=== PATIENT | female | born 1995 | race Caucasian/White ===

== ENCOUNTER → 2021-06-24 | Outpatient (CLI) | payer BC ==
--- NOTE | 2021-06-24 16:25 | Diagnostic Imaging Report ---
INDICATION: Anatomical survey and supervision during normal . TECHNIQUE: Multiple real-time grayscale images were obtained over the gravid uterus. COMPARISON: None FINDINGS: A single viable intrauterine currently in cephalic presentation. Normal amount of amniotic fluid. Placenta is posterior and somewhat low-lying. Cervical length at 4.2 cm. Maternal adnexa not visualized. The visualized anatomical structures including the kidneys, bladder, stomach, intracranial structures, four-chamber heart, three-vessel cord and insertion site as well as spine are unremarkable. Biometrical measurements are as follows: Biparietal 4.68 cm, age 20 weeks 2 days. Head circumference 17.14 cm, age 19 weeks 6 days. Abdominal circumference 14.11 cm, age 19 weeks 4 days. Femur length 3.16 cm, age 19 weeks 6 days. Sonographic estimate age: 20 weeks 0 days. Sonographic estimated date of delivery: 11/11/2021. Estimated Weight: 306 gm (+/- 45 gm). LMP percentile: 43%. heart rate: 144 beats per minute. number: 1 of 1. IMPRESSION: Single intrauterine currently in a cephalic presentation. Sonographic estimated age 20 weeks 0 days for estimated date of delivery 11/11/2021. No abnormality is suggested at this time. Dictated by: Dictated on workstation # [id number]
== END ==
LOC: RAD 13:45
PROVIDERS: ATTEND Obstetrics & Gynecology
DX: Z34.02 Encounter for supervision of normal first pregnancy, second trimester (principal); Z3A.20 20 weeks gestation of pregnancy
CPT/HCPCS: 76805

== ENCOUNTER 2021-11-09 19:00 | Inpatient (IN) | payer BC ==
[~2021-11-09] VITALS: Ht 167.7 cm; Wt 85.0 kg
[2021-11-09 19:17] VITALS: BP 117/76
[2021-11-09] MEDS ORDERED: TERBUTALINE INJ 1 MG/ML (BRETHINE) AMP SC PRN (20:00)
[2021-11-09 20:11] LABS: BASOPHILS # (AUTO) 0.1 10^3/uL (0.0-0.1); BASOPHILS % (AUTO) 0 % (0-10); EOSINOPHILS # (AUTO) 0.1 10^3/uL (0.0-0.3); EOSINOPHILS % (AUTO) 1 % (0-10); HEMATOCRIT 38 % (35-52); HEMOGLOBIN 12.9 g/dL (11.5-16.0); LYMPHOCYTES # (AUTO) 1.7 10^3/uL (1.0-4.0); LYMPHOCYTES % (AUTO) 13 % (12-44); MEAN CORPUSCULAR HEMOGLOBIN 32 pg (25-34); MEAN CORPUSCULAR HGB CONC 34 g/dL (32-36); MEAN CORPUSCULAR VOLUME 93 fL (80-99); MEAN PLATELET VOLUME 11.6 fL (9.0-12.2); MONOCYTES % (AUTO) 8 % (0-12); NEUTROPHILS # (AUTO) 9.7 10^3/uL (1.8-7.8); NEUTROPHILS % (AUTO) 76 % (42-75); PLATELET COUNT 210 10^3/uL (130-400); WHITE BLOOD COUNT 12.8 10^3/uL (4.3-11.0)
[2021-11-09] MEDS ORDERED: NS IV 1000 ML 1,000 ML ONE (20:12)
[2021-11-09] MEDS ORDERED: NS IV 1000 ML 1,000 ML IV SCH (20:15)
[2021-11-09] MEDS ORDERED: D5 LR IV SOLUTION 1,000 ML IV ONE (21:09)
[2021-11-09] MEDS: D5 LR IV SOLUTION 1,000 ML IV SCH (21:18)
[2021-11-09 22:02] VITALS: BP 125/71
[2021-11-09] MEDS: CATHETER FLUSH 10 ML SYR IV SCH (22:46)
[2021-11-09] MEDS ORDERED: ceFAZolin 2 GM/50 ML (ANCEF) Premixed IV ONE (23:00)
[2021-11-09 23:10] VITALS: BP 117/63
[2021-11-10] VITALS (78 sets, daily range): BP systolic 72–169; BP diastolic 33–81
[2021-11-10] MEDS ORDERED: IBUPROFEN 600 MG (MOTRIN) TAB PO SCH
[2021-11-10] MEDS: ceFAZolin INJECTION 1,000 MG VIAL IV SCH ×4 (00:03→17:54)
[2021-11-10] MEDS: D5 LR IV SOLUTION 1,000 ML IV SCH ×3 (04:05→20:11)
[2021-11-10] MEDS: CATHETER FLUSH 10 ML SYR IV SCH ×2 (06:24→22:00)
[2021-11-10] MEDS: OXYTOCIN PRE-MIX DRIP 500 ML IV SCH ×3 (06:35→23:54)
[2021-11-10] MEDS ORDERED: fentaNYL 2 mcg/ml BUPIVA 0.125 100 ML ONE (07:11)
[2021-11-10] MEDS: fentaNYL 2 mcg/ml BUPIVA 0.125 100 ML IV SCH ×2 (07:50→16:17)
[2021-11-10] MEDS ORDERED: fentaNYL INJ 100 MCG/2 ML AMP ONE (07:51)
--- NOTE | 2021-11-10 08:07 | History & Physical-OB ---
OB - Chief Complaint & HPI Date/Time Date of Admission: Date of Admission: Nov 09, 2021 at 19:05 Date seen by a Provider: Nov 10, 2021 Time Seen by a Provider: 07:45 Chief Complaint/History OB-Reason for Admission/Chief: Induction of Labor Hx : 1 Hx Para: 0 Expected Date of Delivery: Nov 13, 2021 Gestational Age in Weeks: 39 Gestational Age in Days: 3 Indication for induction: maternal discomfort Admission Nurse Assessment Rev: Yes History of Labs O pos Antibody neg RI RPR NR HBsAg NR HIV NR GC neg GBS pos Allergies and Home Medications Allergies Coded Allergies: Penicillins (Verified Allergy, Intermediate, Itching, 11/09/21) Patient Home Medication List Home Medication List Reviewed: Yes OB - History Hx of Present Care: Yes Ultrasounds: Normal mid trimester US Obstetrical Complications: None Medical Complications: None Patient Past Medical History n/a Immunizations Influenza Vaccine Up-to-Date: No; Not Current Hepatitis A: Yes Hepatitis B: Yes OB - Admission Exam Physical Exam Vitals: Vital Signs 11/09/21 11/10/21 23:10 06:39 Temp 36.4 Pulse 88 Resp 20 B/P (MAP) 127/76 (93) Pulse Ox 97 O2 Delivery Room Air HEENT: NCAT Heart: Rhythm Normal Lungs: Clear Abdomen: Gravid Extremities: Normal Reflexes: Normal Cervical Dilatation: 1cm Effacement: 75% Station: -2 Membranes: Intact Heart Rate: 130's Accelerations: Accelerations Present Decelerations: No Decelerations Short Term Variability: Present Construction Trench Digger Variability: Average (6-25) Contractions on Admission: >10 Minutes Apart Intensity: Mild Ash Scoring Tool (Modified) Dilation (cm): 1-2cm (1) Effacement (%): 51-79% (2) Descent/Station: -1,0 (2) Cervix Consistency: Soft (2) Cervix Position: Anterior (2) Subtract 1 point for: Nulliparity (-1) Ash Score: 8 Labs Laboratory Tests Test 11/09/21 19:30 Range/Units White Blood Count 12.8 H 4.3-11.0 10^3/uL Red Blood Count 4.07 3.80-5.11 10^6/uL Hemoglobin 12.9 11.5-16.0 g/dL Hematocrit 38 35-52 % Mean Corpuscular Volume 93 80-99 fL Mean Corpuscular Hemoglobin 32 25-34 pg Mean Corpuscular Hemoglobin Concent 34 32-36 g/dL Red Cell Distribution Width 13.1 10.0-14.5 % Platelet Count 210 130-400 10^3/uL Mean Platelet Volume 11.6 9.0-12.2 fL Immature Granulocyte % (Auto) 2 % Neutrophils (%) (Auto) 76 H 42-75 % Lymphocytes (%) (Auto) 13 12-44 % Monocytes (%) (Auto) 8 0-12 % Eosinophils (%) (Auto) 1 0-10 % Basophils (%) (Auto) 0 0-10 % Neutrophils # (Auto) 9.7 H 1.8-7.8 10^3/uL Lymphocytes # (Auto) 1.7 1.0-4.0 10^3/uL Monocytes # (Auto) 1.0 0.0-1.0 10^3/uL Eosinophils # (Auto) 0.1 0.0-0.3 10^3/uL Basophils # (Auto) 0.1 0.0-0.1 10^3/uL Immature Granulocyte # (Auto) 0.3 H 0.0-0.1 10^3/uL OB - Assessment/Plan/Diagnosis Assessment Assessment: induction of labor Admission Dx 26 yo @ 39 weeks Elective IOL GBS pos Admission Status: Inpatient Order (span 2 midnights) Reason for Inpatient Admission: IOL at 39 weeks Plan Plan: Induction Induction Method: per Misoprostol Protocol MARKO SIBLEY DO Nov 10, 2021 08:07
[2021-11-10] MEDS ORDERED: LACTATED RINGERS 1,000 ML IV ONE (09:30)
[2021-11-10] MEDS ORDERED: ONDANSETRON 4 MG/2 ML (SDV) Z0FRAN IV PRN (09:30)
[2021-11-10] MEDS ORDERED: NALOXONE 0.4 MG/ML 1 ML (NARCAN) VIAL IV PRN ×2 (09:30→23:45)
[2021-11-10] MEDS ORDERED: LIDOCAINE/EPI 2% 1:200,00 (XYLOCAINE) 10 ML VIAL ONE (21:38)
--- NOTE | 2021-11-10 23:38 | OB Labor & Delivery Record ---
L&D History Date of Service Date of Service: Nov 10, 2021 History Expected Date of Delivery: Nov 13, 2021 Gestational Age in Weeks: 39 Hx : 1 Hx Para: 0 Complications Events: Routine care Operative Indications (Cesarea: N/A-Vaginal Delivery Intrapartal Events: None L&D Stage1 Stage One Onset of Labor - Date: Nov 10, 2021 Monitors and Tracing Monitor Mode: External Heart Rate: 145 Monitor Accelerations: Uniform Monitor Decelerations: Variable Station: 0 Usp Variability: Average (6-10) Short Term Variability: Present Presentation: Vertex Vital Signs VS - Last 72 Hours, by Label 11/09/21 11/09/21 11/09/21 11/09/21 19:17 21:53 21:58 22:02 Temp 36.0 Pulse 110 90 84 Resp 16 B/P (MAP) 125/71 (89) Pulse Ox 96 97 98 O2 Delivery Room Air Room Air Room Air 11/09/21 11/10/21 11/10/21 11/10/21 23:10 00:14 03:22 03:38 Temp 36.1 36.3 36.4 Pulse 88 B/P (MAP) 117/63 (81) 11/10/21 11/10/21 11/10/21 11/10/21 06:39 07:10 07:27 07:37 Temp 36.4 Pulse 87 90 67 Resp 20 18 18 18 B/P (MAP) 127/76 (93) 127/77 (94) 144/72 (96) 72/33 (46) Pulse Ox 97 99 97 O2 Delivery Room Air Room Air Room Air Room Air 11/10/21 11/10/21 11/10/21 11/10/21 07:39 07:41 07:44 07:47 Pulse 55 62 67 75 Resp 18 18 18 18 B/P (MAP) 106/57 (73) 116/61 (79) 118/66 (83) 123/68 (86) Pulse Ox 97 97 98 98 O2 Delivery Room Air Room Air Room Air Room Air 11/10/21 11/10/21 11/10/21 11/10/21 07:50 07:53 07:56 07:59 Pulse 93 92 96 75 Resp 18 18 18 18 B/P (MAP) 123/60 (81) 125/69 (87) 116/66 (83) 89/51 (64) Pulse Ox 98 97 97 98 O2 Delivery Room Air Room Air Room Air Room Air 11/10/21 11/10/21 11/10/21 11/10/21 08:02 08:05 08:08 08:11 Pulse 76 77 83 72 Resp 18 18 18 18 B/P (MAP) 123/66 (85) 96/52 (67) 109/59 (76) 118/57 (77) Pulse Ox 98 99 99 99 O2 Delivery Room Air Room Air Room Air Room Air 11/10/21 11/10/21 11/10/21 11/10/21 08:14 08:17 08:20 08:23 Pulse 103 95 97 87 Resp 18 18 18 18 B/P (MAP) 109/59 (76) 118/64 (82) 99/54 (69) 126/64 (84) Pulse Ox 97 97 96 96 O2 Delivery Room Air Room Air Room Air Room Air 11/10/21 11/10/21 11/10/21 11/10/21 08:26 08:29 08:32 08:35 Pulse 110 79 107 96 Resp 18 18 18 18 B/P (MAP) 107/61 (76) 117/67 (84) 118/60 (79) 84/47 (59) Pulse Ox 96 95 95 98 O2 Delivery Room Air Room Air Room Air Room Air 11/10/21 11/10/21 11/10/21 11/10/21 08:40 09:00 09:15 09:30 Temp 36.0 Pulse 84 90 67 112 Resp 18 18 18 18 B/P (MAP) 108/62 (77) 121/76 (91) 118/68 (85) 107/67 (80) Pulse Ox 97 97 O2 Delivery Room Air Room Air Room Air Room Air 11/10/21 11/10/21 11/10/21 11/10/21 09:45 10:00 10:30 10:45 Pulse 89 130 86 90 Resp 18 18 18 18 B/P (MAP) 115/68 (84) 91/55 (67) 128/78 (95) 109/67 (81) O2 Delivery Room Air Room Air Room Air Room Air 11/10/21 11/10/21 11/10/21 11/10/21 11:00 11:15 11:30 11:45 Temp 35.9 Pulse 81 84 75 76 Resp 18 18 18 18 B/P (MAP) 120/66 (84) 117/65 (82) 120/64 (82) 114/59 (77) O2 Delivery Room Air Room Air Room Air Room Air 11/10/21 11/10/21 11/10/21 11/10/21 12:00 12:15 12:30 12:45 Temp 35.9 Pulse 74 90 75 89 Resp 18 18 18 18 B/P (MAP) 105/55 (72) 122/73 (89) 124/67 (86) 104/59 (74) O2 Delivery Room Air Room Air Room Air Room Air 11/10/21 11/10/21 11/10/21 11/10/21 13:00 13:15 13:30 13:45 Temp 36.0 Pulse 81 86 95 89 Resp 18 18 18 18 B/P (MAP) 105/56 (72) 119/67 (84) 124/64 (84) 107/63 (78) O2 Delivery Room Air Room Air Room Air Room Air 11/10/21 11/10/21 11/10/21 11/10/21 14:00 14:15 14:30 14:45 Pulse 80 82 71 69 Resp 18 B/P (MAP) 113/66 (82) 117/71 (86) 120/59 (79) 120/59 (79) O2 Delivery Room Air 11/10/21 11/10/21 11/10/21 11/10/21 15:00 15:15 15:30 16:00 Temp 35.9 Pulse 75 71 80 85 B/P (MAP) 116/55 (75) 122/62 (82) 125/67 (86) 115/63 (80) 11/10/21 11/10/21 11/10/21 11/10/21 16:15 16:30 16:45 17:00 Temp 36.2 Pulse 106 84 76 93 B/P (MAP) 115/57 (76) 116/67 (83) 120/65 (83) 131/81 (98) 11/10/21 11/10/21 11/10/21 11/10/21 17:15 17:30 17:45 18:00 Pulse 81 85 93 77 B/P (MAP) 130/81 (97) 125/65 (85) 120/67 (84) 122/66 (84) 11/10/21 11/10/21 11/10/21 18:15 18:30 18:45 Pulse 98 81 81 B/P (MAP) 111/67 (82) 126/68 (87) 123/69 (87) Rupture of Membranes Spontaneous Ruture of Membrane: Yes Amniotic Membrane Rupture Time: 0120 Amniotic Membrane Fluid Desc.: Clear Vaginal Bleeding Description: Normal Show Induction/Anesthesia Epidural Cath Placement - Time: 732 Progress/Notes Patient admitted for IOL at 39 weeks last night. Given PO dosing of misoprostol overnight. She had SROM early this morning. Pitocin augmentation started this AM, and epidural received. She progressed throughout the day to complete and 0 station when she began to feel an urge to push L&D Stage2 Stage Two Stage II Date: Nov 10, 2021 Monitors and Tracing Monitor Mode: External Heart Rate: 145 Monitor Accelerations: Uniform Monitor Decelerations: Variable Chargemaster Analyst Variability: Average (6-10) Short Term Variability: Present Position: Right Occiput Anterior Presentation: Vertex Cord Descript/Complications Cord Vessel Description: 3 Vessels Delivery Type Delivery Method: Spontaneous Vaginal Anterior Shoulder: Left Episiotomy/Perineal Laceration Laceraction(s)/Extensions: Yes Episiotomy Description: Perineal Extension/lac, 2nd degree Degree (describe repair) Perineal laceration repaired using 3-0 and 2-0 vicryl suture in usual fashion Condition of Infant Delivery 1 minute Comment: 9 5 minute Comment: 9 Notes Live female infant weight 7lbs 8 oz Condition of Infant Condition of Infant: Living Exam: No Observed Abnormalities Resuscitation Resuscitation: N/A - Spontaneous Resp L&D Stage3 Stage Three Stage III Date: Nov 10, 2021 Pictocin Pitocin Administration mu/min: 20 Pitocin ml/hr: 20 Pitocin Administration Comment: 30 mu wide open at delivery of placenta Placenta Delivery Placenta Delivery: Spontaneous Delivery Summary Summary Estimated blood loss (mL): 350 Attending at delivery: Marko Sibley DO Condition of Delivery Examined: Cervix Examined, Uterus Explored Post Hemorrhage: No Condition of Mother stable Condition of Infant (s) stable MARKO SIBLEY DO Nov 10, 2021 23:38
--- NOTE | 2021-11-10 23:39 | Discharge Inst-Women's Service ---
Discharge Inst-Women's Serv Depart Medication/Instructions New, Converted or Re-Newed RX: Transmitted to Pharmacy Final Diagnosis PPD 2 NVD Problems Reviewed?: Yes Consults/Follow Up Additional Follow Up: Yes Orders/Referrals Dr. Sibley in 6 weeks Activity Activity: Activity as Tolerated Driving Instructions: No Driving for 1 Week NO SMOKING: NO SMOKING Nothing Inside Vagina: No Douching, No Sinclair, No Tampons Diet Discharge Diet: No Restrictions Symptoms to Report to : Bleeding Excessive, Pain Increased, Fever Over 101 Degrees F, Vaginal Bleeding Increase, Questions/Concerns MARKO SIBLEY DO Nov 10, 2021 23:39
[2021-11-10] MEDS ORDERED: DOCU100C37 PO (23:40)
[2021-11-10] MEDS ORDERED: IBUP-844 PO (23:40)
[2021-11-10] MEDS ORDERED: DIBU30OI TOP (23:40)
[2021-11-10] MEDS ORDERED: FERR325T24 PO (23:40)
[2021-11-10] MEDS ORDERED: BENZ78AE5 TP (23:40)
[2021-11-10] MEDS ORDERED: ACHD5005 PO (23:40)
[2021-11-10] MEDS ORDERED: BENZOCAINE/MENTHOL (DERMOPLAST) 56 ML CAN TP PRN (23:45)
[2021-11-10] MEDS ORDERED: WITCH HAZEL(TUCKS) 40 EA JAR TOP PRN (23:45)
[2021-11-10] MEDS ORDERED: HYDROcodone/APAP 5 MG/325 MG (LORTAB) TAB PO PRN (23:45)
[2021-11-10] MEDS ORDERED: DIBUCAINE 1% OINTMENT 30 GM TUBE TOP PRN (23:45)
[2021-11-10] MEDS ORDERED: MEASLES,MUMPS,RUBELLA 1 EA INJ SQ ONE (23:45)
[2021-11-10] MEDS ORDERED: TETANUS,DIPTH,PERTUSS P/F (BOOSTRIX) 0.5 ML VIAL IM ONE (23:45)
[2021-11-11] VITALS (8 sets, daily range): BP systolic 111–130; BP diastolic 60–71
[2021-11-11] MEDS: OXYTOCIN PRE-MIX DRIP 500 ML IV SCH (00:16)
[2021-11-11] MEDS: CATHETER FLUSH 10 ML SYR IV SCH (04:09)
[2021-11-11] MEDS ORDERED: LIDOCAINE/EPI 2% 1:200,00 (XYLOCAINE) 10 ML VIAL INJ ONE (04:15)
[2021-11-11] MEDS ORDERED: CATHETER FLUSH 10 ML SYR IV SCH (06:00)
[2021-11-11 06:06] LABS: BASOPHILS % (AUTO) 0 % (0-10); EOSINOPHILS % (AUTO) 0 % (0-10); HEMATOCRIT 33 % (35-52); HEMOGLOBIN 11.1 g/dL (11.5-16.0); LYMPHOCYTES # (AUTO) 1.5 10^3/uL (1.0-4.0); LYMPHOCYTES % (AUTO) 8 % (12-44); MEAN CORPUSCULAR HEMOGLOBIN 32 pg (25-34); MEAN CORPUSCULAR HGB CONC 33 g/dL (32-36); MEAN CORPUSCULAR VOLUME 96 fL (80-99); MEAN PLATELET VOLUME 11.3 fL (9.0-12.2); MONOCYTES # (AUTO) 1.4 10^3/uL (0.0-1.0); MONOCYTES % (AUTO) 7 % (0-12); NEUTROPHILS # (AUTO) 15.6 10^3/uL (1.8-7.8); NEUTROPHILS % (AUTO) 83 % (42-75); PLATELET COUNT 164 10^3/uL (130-400); WHITE BLOOD COUNT 18.8 10^3/uL (4.3-11.0)
[2021-11-11] MEDS: PRENATAL VITAMIN 1 EA TAB PO SCH (06:12)
[2021-11-11] MEDS: IBUPROFEN 600 MG (MOTRIN) TAB PO SCH ×4 (06:12→23:58)
--- NOTE | 2021-11-11 08:47 | Postpartum Progress Note ---
Note Note Day # 1 Subjective: Patient is without complaints. Ambulating, voiding. Tolerating a regular diet without nausea or vomiting. Normal lochia. Pain is well controlled with oral pain medications. Objective: Physical Exam: General - Alert and oriented, no apparent distress Abdomen - Soft, appropriately tender to palpation, non-distended, fundus firm at umbilicus Extremities - no edema, negative Marifer's bilaterally Assessment: PPD 1 NVD Acute blood loss anemia Plan: Routine care. Encourage breast feeding. Encourage ambulation. Ferrous sulfate supplementation. Plan for discharge tomorrow Vitals - Labs Vital Signs - I&O Vital Signs Date Time Temp Pulse Resp B/P (MAP) Pulse Ox O2 Delivery O2 Flow Rate FiO2 11/11/21 05:00 36.6 74 18 117/ 97 Room Air 11/11/21 01:18 36.8 97 16 121/65 (83) 98 Room Air 11/11/21 00:11 75 118/71 (87) Room Air 11/10/21 23:56 90 123/65 (84) Room Air 11/10/21 23:41 93 123/73 (90) Room Air 11/10/21 23:26 96 136/62 (86) Room Air 11/10/21 23:18 97 121/61 (81) Room Air 11/10/21 22:45 11/10/21 22:30 11/10/21 22:15 11/10/21 22:00 11/10/21 21:45 36.1 91 169/60 (96) 11/10/21 21:30 83 115/62 (79) 11/10/21 21:15 117/59 (78) 11/10/21 21:00 87 119/57 (77) 11/10/21 20:45 87 117/60 (79) 11/10/21 20:30 89 120/69 (86) 11/10/21 20:15 85 121/67 (85) 11/10/21 20:00 81 121/71 (88) 11/10/21 19:45 86 124/78 (93) 11/10/21 19:30 97 118/64 (82) 11/10/21 19:15 116 118/62 (80) 11/10/21 18:45 81 123/69 (87) 11/10/21 18:30 81 126/68 (87) 11/10/21 18:15 98 111/67 (82) 11/10/21 18:00 77 122/66 (84) 11/10/21 17:45 93 120/67 (84) 11/10/21 17:30 85 125/65 (85) 11/10/21 17:15 81 130/81 (97) 11/10/21 17:00 36.2 93 131/81 (98) 11/10/21 16:45 76 120/65 (83) 11/10/21 16:30 84 116/67 (83) 11/10/21 16:15 106 115/57 (76) 11/10/21 16:00 85 115/63 (80) 11/10/21 15:30 35.9 80 125/67 (86) 11/10/21 15:15 71 122/62 (82) 11/10/21 15:00 75 116/55 (75) 11/10/21 14:45 69 120/59 (79) 11/10/21 14:30 71 120/59 (79) 11/10/21 14:15 82 117/71 (86) 11/10/21 14:00 80 18 113/66 (82) Room Air 11/10/21 13:45 89 18 107/63 (78) Room Air 11/10/21 13:30 36.0 95 18 124/64 (84) Room Air 11/10/21 13:15 86 18 119/67 (84) Room Air 11/10/21 13:00 81 18 105/56 (72) Room Air 11/10/21 12:45 89 18 104/59 (74) Room Air 11/10/21 12:30 35.9 75 18 124/67 (86) Room Air 11/10/21 12:15 90 18 122/73 (89) Room Air 11/10/21 12:00 74 18 105/55 (72) Room Air 11/10/21 11:45 76 18 114/59 (77) Room Air 11/10/21 11:30 35.9 75 18 120/64 (82) Room Air 11/10/21 11:15 84 18 117/65 (82) Room Air 11/10/21 11:00 81 18 120/66 (84) Room Air 11/10/21 10:45 90 18 109/67 (81) Room Air 11/10/21 10:30 86 18 128/78 (95) Room Air 11/10/21 10:00 130 18 91/55 (67) Room Air 11/10/21 09:45 89 18 115/68 (84) Room Air 11/10/21 09:30 112 18 107/67 (80) Room Air 11/10/21 09:15 67 18 118/68 (85) Room Air 11/10/21 09:00 36.0 90 18 121/76 (91) 97 Room Air I & O 11/11/21 07:00 Intake Total 3000 ml Balance 3000 ml Labs Laboratory Tests 11/11/21 05:50: White Blood Count 18.8H, Red Blood Count 3.46L, Hemoglobin 11.1L, Hematocrit 33L , Mean Corpuscular Volume 96, Mean Corpuscular Hemoglobin 32, Mean Corpuscular Hemoglobin Concent 33, Red Cell Distribution Width 13.2, Platelet Count 164, Mean Platelet Volume 11.3, Immature Granulocyte % (Auto) 1, Neutrophils (%) (Auto) 83H, Lymphocytes (%) (Auto) 8L, Monocytes (%) (Auto) 7, Eosinophils (%) (Auto) 0, Basophils (%) (Auto) 0, Neutrophils # (Auto) 15.6H, Lymphocytes # (Auto) 1.5, Monocytes # (Auto) 1.4H, Eosinophils # (Auto) 0.0, Basophils # (Auto) 0.0, Immature Granulocyte # (Auto) 0.3H MARKO SIBLEY 8, 2022 08:47
[2021-11-11] MEDS: FERROUS SULF 325 MG (IRON) TAB PO SCH (09:45)
[2021-11-11] MEDS: DOCUSATE SODIUM 100 MG (COLACE) CAP PO SCH ×2 (09:45→20:51)
[2021-11-11] MEDS ORDERED: OXYC5CAP18 PO (10:13)
--- NOTE | 2021-11-11 10:41 | Anesthesia-Regional Post-Op ---
Regional Patient Condition Mental Status: Alert, Oriented x3 Circulation: Same as Pre-Op Headache: Absent Sensation: Full Recovery Motor Block: Absent Post Op Complications Complications None Follow Up Care/Instructions Patient Instructions None needed. Anesthesia/Patient Condition Patient is doing well, no complaints, stable vital signs, no apparent adverse anesthesia problems. No complications reported per nursing. ROSALES ROMAN CRNA Nov 11, 2021 10:41
[2021-11-12 06:24] VITALS: BP 121/58
[2021-11-12] MEDS: IBUPROFEN 600 MG (MOTRIN) TAB PO SCH ×2 (06:26→12:50)
--- NOTE | 2021-11-12 07:44 | Postpartum Progress Note ---
Note Note Day # [2] Subjective: Patient is without complaints. Ambulating, voiding. Tolerating a regular diet without nausea or vomiting. Normal lochia. Pain is well controlled with oral pain medications.breast feeding.No c/o Objective: Physical Exam: Vitals: stable and afebrile General - Alert and oriented, no apparent distress Abdomen - Soft, appropriately tender to palpation, non-distended, fundus firm at umbilicus Extremities - no edema, nnontender Assessment: [] post- day # [2], status post vaginal delivery. Recovering well, hemodynamically stable Plan: Routine care. Encourage breast feeding. Encourage ambulation. Ferrous sulfate supplementation. Plan for discharge today Vitals - Labs Vital Signs - I&O Vital Signs Date Time Temp Pulse Resp B/P (MAP) Pulse Ox O2 Delivery O2 Flow Rate FiO2 11/12/21 06:24 36.3 71 18 121/58 (79) 97 Room Air 11/11/21 23:58 36.2 79 18 111/68 (82) 96 Room Air 11/11/21 20:52 36.6 96 18 115/61 (79) 98 Room Air 11/11/21 17:00 36.7 100 18 129/68 (88) 97 Room Air 11/11/21 12:30 37.0 85 18 128/60 (82) 98 Room Air 11/11/21 09:30 37.1 92 18 130/64 (86) 97 Room Air YAHAIRA JAMES MD Nov 12, 2021 07:44
[2021-11-12] MEDS: FERROUS SULF 325 MG (IRON) TAB PO SCH (09:17)
[2021-11-12] MEDS: PRENATAL VITAMIN 1 EA TAB PO SCH (09:17)
[2021-11-12] MEDS: DOCUSATE SODIUM 100 MG (COLACE) CAP PO SCH (09:17)
[2021-11-12 09:19] VITALS: BP 134/70
== END 2021-11-12 13:15 | disposition home or self-care (01) | DRG 806 ==
LOC: LDRP 19:05
PROVIDERS: ADMIT Obstetrics & Gynecology; ATTEND Obstetrics & Gynecology
PROC: 10E0XZZ Delivery of Products of Conception, External Approach (ICD-10-PCS; principal; 2021-11-10)
PROC: 0KQM0ZZ Repair Perineum Muscle, Open Approach (ICD-10-PCS; 2021-11-10)
PROC: 0UJD7ZZ Inspection of Uterus and Cervix, Via Natural or Artificial Opening (ICD-10-PCS; 2021-11-10)
DX: O99.824 Streptococcus B carrier state complicating childbirth (principal); D62 Acute posthemorrhagic anemia; Z37.0 Single live birth; Z3A.39 39 weeks gestation of pregnancy; O70.1 Second degree perineal laceration during delivery; O90.81 Anemia of the puerperium
CPT/HCPCS: 36415; 85025; 86850; 86900; 86901